=== PATIENT | female | born 1985 | race Two or more races ===

== ENCOUNTER 2023-07-09 07:38 | Outpatient (CLI) | payer OTHER | END 2023-07-09 07:47 | disposition home or self-care (01) | LOC: NUCLEAR 07:38 | PROVIDERS: ATTEND Internal Medicine Hematology & Oncology | DX: M32.9 Systemic lupus erythematosus, unspecified (principal); D75.839 Thrombocytosis, unspecified | CPT/HCPCS: 78306; A9503 ==

== ENCOUNTER → 2023-07-14 09:32 | Outpatient (CLI) | payer OTHER ==
[2023-07-14 09:25] LABS: HEMATOCRIT 34.6 % (36.0-45.00); MEAN CORPUSCULAR HEMOGLOBIN 29.2 pg (27.00-32.0); MEAN CORPUSCULAR HGB CONC 34.8 g/dl (32.0-36.0); PLATELET COUNT 417 K/uL (150-450); RED BLOOD COUNT 4.13 M/uL (4.00-6.00); RED CELL DISTRIBUTION WIDTH 13.9 % (11.5-14.5)
[2023-07-14 09:39] LABS: INR 1.14; PARTIAL THROMBOPLASTIN TIME 31.5 SECONDS (22.0-34.0); PROTHROMBIN TIME 11.9 SECONDS (9.0-11.5)
[2023-07-14 09:47] LABS: % SATURACION 31.8 % (15-50); ALBUMIN 3.5 gm/dL (3.4-5.0); BILIRUBIN TOTAL 0.55 mg/dL (0.3-1.2); CALCIUM 8.8 mg/dL (8.5-10.1); CREATININE SERUM 0.69 mg/dL (0.55-1.02); FERRITIN 42.4 NG/ML (8-252); GFR 94.23; GLOBULINA 3.3 G/DL (2.4-3.5); POTASSIUM 4.58 mEq/L (3.5-5.1); TOTAL PROTEIN 6.8 gm/dL (6.4-8.2)
[2023-07-14 10:04] LABS: COL EPI 171 SECONDS (82-175)
[2023-07-14 10:51] LABS: FOLIC ACID 18.18 ng/ml (4.78-20)
[2023-07-14 11:17] LABS: ERYTHROCYTE SEDIMENTATION RATE 8 mm/hr
[2023-07-16 09:37] LABS: MANUAL PLATELET COUNT 720
[2023-07-16 09:39] LABS: PLATELET ESTIMATE INCREASED (NORMAL)
== END | disposition home or self-care (01) ==
LOC: LAB 07-09 08:31
PROVIDERS: ATTEND Internal Medicine Hematology & Oncology
DX: D50.8 Other iron deficiency anemias (principal); R79.9 Abnormal finding of blood chemistry, unspecified; I10 Essential (primary) hypertension; R74.02 Elevation of levels of lactic acid dehydrogenase [LDH]; K76.89 Other specified diseases of liver; R70.0 Elevated erythrocyte sedimentation rate; D68.8 Other specified coagulation defects; D69.1 Qualitative platelet defects; D75.839 Thrombocytosis, unspecified

== ENCOUNTER 2025-04-19 08:24 | Outpatient (CLI) | payer OTHER ==
[2025-04-19 08:54] LABS: BASO % 0.6 % (0.1-1.2); EOS # 0.04 (0.04-0.54); EOS % 0.9 % (0.7-7.0); LYMPH # 1.55 (1.18-3.74); LYMPH % 33.0 % (19.3-53.1); MEAN PLATELET VOLUME 9.50 fl (9.4-12.4); MONO # 0.43 (0.24-0.82); MONO % 9.2 % (4.7-12.5); NEUT # 2.63 (1.56-6.13); NEUT % 56.1 % (34.0-71.1); RED CELL DISTRIBUTION WIDTH 13.1 % (11.6-14.4)
[2025-04-19 08:59] LABS: ERYTHROCYTE SEDIMENTATION RATE 4 mm/hr (0-20)
[2025-04-19 10:09] LABS: ALT/SGPT 23 U/L (12-78); AST/SGOT 11 U/L (15-37); BILIRUBIN TOTAL 0.37 mg/dL (0.3-1.2); BUN CREA RATIO 20 (7.0-25.0); CREATININE SERUM 0.69 mg/dL (0.55-1.02); GFR 93.76; GLOBULINA 3.5 G/DL (2.4-3.5); GLUCOSE FASTING 78 mg/dL (65-100); OSMOLALITY SERUM 281 MOSM/KG (275-295)
[2025-04-20 09:08] LABS: COMPLEMENT C3 95 mg/dL (82-167); COMPLEMENT C4 17 mg/dL (12-38)
== END 2025-04-19 08:25 | disposition home or self-care (01) ==
LOC: LAB 08:24
DX: M32.9 Systemic lupus erythematosus, unspecified (principal); M06.9 Rheumatoid arthritis, unspecified